=== PATIENT | male | born 1980 | race Two or more races ===

== ENCOUNTER 2025-06-17 15:00 | Emergency (ER) | payer OTHER, SELFPAY ==
[2025-06-17 15:25] VITALS: BP 215/118; PULSE 91; RESP 20; TEMP 36.8; O2SAT 96; BMI 39.3
[2025-06-17 16:12] VITALS: BP 187/117
--- NOTE | 2025-06-17 16:31 | EDNOTE_ITS ---
ED Dental RME/HPI General Chief complaint: Dental/Oral/Throat Stated complaint: Bleeding gum upper left since this am Time Seen by Provider: 06/17/25 16:06 Arrival date/time: 06/17/25 15:00 Limitations: no limitations RME / HPI RME / HPI Narrative: 44-year-old male here for left molar bleeding. History of hypertension. States PCP is out of town and has not gotten blood pressure refills that is why his blood pressure still high. Also cannot get into the dentist needs that molar extracted. No fevers. No history of diabetes. No IV drug use. No history of cirrhosis or bleeding disorders Related Data Previous Rx's ?Medication ?Instructions ?Recorded penicillin V potassium 500 mg 500 mg PO QID ##40 01/09 tablet penicillin vk 500mg 1 tab PO QID ##40 01/11/12 levofloxacin 750 mg tablet 750 mg PO Q24H #7 tabs 01/04 metoprolol tartrate 25 mg tablet 25 mg PO BID #60 tabs 06/17/25 metronidazole 500 mg tablet 500 mg PO Q8H #7 tabs 01/04 Allergies Allergy/AdvReac Type Severity Reaction Status Date / Time No Known Allergies Allergy Unverified 06/17/25 16:14 Review of Systems Review of Systems Systems Reviewed: All systems reviewed, normal except as documented Constitutional Constitutional: Denies fever(s) ENT Ears, Nose, Mouth, and Throat: Reports as per HPI ED Exam General Limitations: Present no limitations General appearance: Present alert and in no apparent distress Head Head exam: Present atraumatic Eye Eye exam: Present normal appearance, PERRL and EOMI ENT ENT exam: Present normal exam, normal oropharynx and mucous membranes moist Neck Neck exam: Present full ROM, trachea midline and other (Left upper molar with significant bleeding and TTP dental caries noted throughout no periapical abscess) Chest Chest inspection: Present normal inspection and symmetric chest wall rise Respiratory Respiratory exam: Present normal lung sounds bilaterally Cardiovascular Cardiovascular exam: Present regular rate, normal rhythm and normal heart sounds Extremities Exam Extremities exam: Present normal inspection and full ROM Back Exam Back exam: Present normal inspection and full ROM Skin Skin exam: Present warm, dry, intact and normal color Course Quality Measures none Orders Category Date Time Status ALPRazoLAM [Xanax] Med 06/17/25 16:25 Discontinued 1 mg PO X1 ONE PEN G OUMAR (Bicillin LA) [Bicillin La Inj] Med 06/17/25 16:12 Discontinued 1,200,000 unit IM X1 ONE levoFLOXacin [Levaquin] Med 06/17/25 16:32 Discontinued 500 mg PO X1 ONE metroNIDAZOLE [Flagyl] Med 06/17/25 16:32 Discontinued 500 mg PO X1 ONE Vital Signs Vital signs: Vital Signs Temperature 98.3 F 06/17/25 15:25 Pulse Rate 91 06/17/25 15:25 Respiratory Rate 20 06/17/25 15:25 Blood Pressure 215/118 H 06/17/25 15:25 Pulse Oximetry (%) 96 06/17/25 15:25 Oxygen Delivery Method Room Air 06/17/25 15:25 Dental / Oral Patient data External records reviewed:: [facility] previous records Clinical information provided by:: patient and family Social determinants that could affect healthcare access:: other (specify) (PCP is on vacation) Patient has the following chronic illnesses:: Hypertension How is presenting disease/condition affected by chronic disease/condition?: exacerbated by Evaluation data The following diagnostics were reviewed and interpreted by me:: other (specify) (None were warranted at this time) Lab and/or radiology exams considered but not ordered:: CBC PT/INR were considered however unlikely to change the course of treatment today Interpretation Summary: None Medications / Prescriptions Medications or Prescriptions considered but not ordered:: TXA was considered however unlikely to be required in the situation Medication administrations:: Medication Administration History Discontinued Medications Alprazolam (Alprazolam 0.25 Mg Tablet) 1 mg PO X1 ONE Stop: 06/17/25 16:26 Last Admin: 06/17/25 16:57 Dose: 1 mg Documented By: PAULINO Levofloxacin (Levofloxacin 250 Mg Tablet) 500 mg PO X1 ONE Stop: 06/17/25 16:33 Last Admin: 06/17/25 17:00 Dose: 500 mg Documented By: PAULINO Metronidazole (Metronidazole 250 Mg Tablet) 500 mg PO X1 ONE Stop: 06/17/25 16:33 Last Admin: 06/17/25 16:59 Dose: 500 mg Documented By: PAULINO Penicillin G Benzathine (Pen G Oumar (Bicillin La) 1,200,000 Unit/2 Ml Syringe) 1,200,000 unit IM X1 ONE Stop: 06/17/25 16:13 Last Admin: 06/17/25 17:00 Dose: Not Given Documented By: PAULINO Non-Admin Reason: Cancelled by Provider See above Consultations Consultation(s) initiated? (list below): No Diagnosis Dental Differential Diagnosis: gingival abscess, dental caries, toothache and dental abscess Most likely diagnosis given after review of the tests above:: Gingival bleed Dental caries Hypertension poor control Admission Indicated Admission indicated?: not indicated Admission Request Was there a request for admission?: No Disposition Plan Disposition Plan: Discharge Discharge Attestation Discharge Attestation: The patient and all family members were given an opportunity to ask questions and understood the discharge instructions. Discharge instructions specifically effects, indications for sooner follow up or return to the emergency department, and the expected course of current diagnosis. Patient condition: Stable Discharge Plan Plan Patient Disposition: HOME (Self Care) Discharge Disposition comment: fu with pcp in 2-3days Prescriptions/Referrals Prescriptions/Med Rec: New metoprolol tartrate 25 mg tablet 25 mg PO BID Qty: 60 0RF metronidazole 500 mg tablet 500 mg PO Q8H Qty: 7 0RF levofloxacin 750 mg tablet 750 mg PO Q24H Qty: 7 0RF No Action penicillin V potassium 500 MG tablet 500 mg PO QID Qty: 40 0RF penicillin vk 500mg 1 tab PO QID Qty: 40 0RF Referrals: Juancho Leach MD [Primary Care Provider, Family Practice] - In 1 week Problem List Clinical Impression: Dental caries, Hypertension, Bleeding gums Patient/Caregiver Discharge Instructions Education Materials: ED Dental Cavity Print Language: Kazakh Stand Alone Forms: Sharmila Award Info., Patient Portal Info Letter ERENDIRA/AYE Supervising Physician ERENDIRA/AYE Supervising Physician: Dr. Taylor
== END 2025-06-17 17:43 | disposition home or self-care (01) ==
PROVIDERS: Emergency Provider Emergency Medicine; PCP Family Medicine
DX: K06.8 Other specified disorders of gingiva and edentulous alveolar ridge (principal); K02.9 Dental caries, unspecified; I10 Essential (primary) hypertension
CPT/HCPCS: 99282; A9270